=== PATIENT | male | born 1995 ===

== ENCOUNTER 2021-12-31 13:08 | Emergency (ER) | payer SELFPAY ==
[2021-12-31] MEDS ORDERED: KETOROLAC 30 MG/1 ML INJ IV ONE (13:45)
[2021-12-31] MEDS ORDERED: ONDANSETRON 4 MG/2 ML INJ IV ONE (13:45)
[2021-12-31] MEDS ORDERED: SODIUM CHLORIDE 0.9% 1000 ML 1,000 ML IV ONE (13:47)
--- NOTE | 2021-12-31 13:52 | Emergency Department Report ---
ED Abdominal Pain HPI - General Chief Complaint: Abdominal Pain Stated Complaint: SEVERE PAIN/KIDNEY STONES Time Seen by Provider: 12/31/21 13:19 Source: patient Mode of arrival: Ambulatory Limitations: No Limitations - History of Present Illness Initial Comments: 26-year-old male with a history of renal stone about 13 years ago who presents now with right flank pain that started this morning progressively getting worse. Pain is radiating to his right groin. Patient could not get comfortable and was pacing around in the room due to pain. He also mentioned that he wanted to pee but he was not able to. Patient denies any fever or chills. No trauma or fall reported. Patient also mention nausea without emesis. Last bowel movement was yesterday and was normal. No other modifying or associated factors reported. Severity scale (0 -10): 10 - Related Data Allergies Allergy/AdvReac Type Severity Reaction Status Date / Time No Known Allergies Allergy Unverified 12/31/21 13:12 ED Review of Systems ROS: Stated complaint: SEVERE PAIN/KIDNEY STONES Other details as noted in HPI Comment: All other systems reviewed and negative Gastrointestinal: abdominal pain, nausea. denies: vomiting Genitourinary: other (unable to urinate) Musculoskeletal: back pain, myalgia ED Past Medical Hx - Past Medical History Previous Medical History?: Yes Hx Kidney Stones: Yes - Surgical History Past Surgical History?: No ED Physical Exam - General Limitations: No Limitations General appearance: alert, in distress (Due to flank pain) - Head Head exam: Present: normal inspection - Eye Eye exam: Present: normal appearance - ENT ENT exam: Present: normal exam, normal orophraynx, mucous membranes moist - Neck Neck exam: Present: normal inspection, full ROM. Absent: tenderness - Respiratory Respiratory exam: Present: normal lung sounds bilaterally. Absent: respiratory distress, wheezes, accessory muscle use - Cardiovascular Cardiovascular Exam: Present: regular rate, normal rhythm, normal heart sounds - GI/Abdominal GI/Abdominal exam: Present: soft, tenderness (Right mid abdomen tenderness to palpation with no erythema or rash), normal bowel sounds - Back Exam Back exam: Present: normal inspection, CVA tenderness (R). Absent: vertebral tenderness - Neurological Exam Neurological exam: Present: alert, oriented X3 - Psychiatric Psychiatric exam: Present: normal affect, normal mood ED Course Vital Signs 04/12/22 04/12/22 13:13 13:28 Temperature 97.7 F Pulse Rate 88 Respiratory 22 20 Rate Blood Pressure 147/73 [Right] O2 Sat by Pulse 98 98 Oximetry - Reevaluation(s) Reevaluation #1: 12/31/21 13:51 Here with right flank pain radiating to the groin area--patient could not get comfortable this is likely/concerning for kidney stone--we will go ahead and order routine kidney stone work-up including CT scan of the abdomen/pelvic, CBC, CMP, urinalysis for any infectious process or electrolyte abnormality. In the meantime we will go ahead and give Toradol 30 mg IV to help with the pain, Zofran 4 mg IV for nausea also will give 1 mg Ativan for muscle relaxant and and 1 L IV fluids normal saline while waiting for labs and imaging. Reevaluation #2: 12/31/21 14:58 I rechecked this patient and he was sleeping after the pain medication and the ivf ns fluid treatment. Pt signed out to Dr Glaser while waiting for other workup labs and imaging at shift change 1500. ED Medical Decision Making - Lab Data Result diagrams: 12/31/21 14:11 12/31/21 14:11 Critical care attestation.: If time is entered above; I have spent that time in minutes in the direct care of this critically ill patient, excluding procedure time. ED Disposition Clinical Impression: Acute right flank pain Condition: Stable
[2021-12-31 14:30] LABS: Bilirubin,Urine NEG (Negative); Blood,Urine SM (Negative); Color,Urine Yellow (Yellow); Mucus,Urine FEW /HPF; Protein,Urine <15 mg/dL mg/dL (Negative); Urobilinogen,Urine < 2.0 mg/dL (<2.0)
[2021-12-31 14:31] LABS: Basophils % (Auto) 0.4 % (0.0-1.8); Eosinophils % (Auto) 0.1 % (0.0-4.3); Hemoglobin 14.6 gm/dl (11.8-15.2); Lymphocytes % (Auto) 12.2 % (13.4-35.0); Mean Corpuscular HGB Conc 34 % (32-34); Mean Corpuscular Volume 92 fl (84-94); Monocytes # (Auto) 0.3 K/mm3 (0.0-0.8); Monocytes % (Auto) 3.7 % (0.0-7.3); Platelet Count 223 K/mm3 (140-440); Red Blood Count 4.68 M/mm3 (3.65-5.03); Red Cell Distribution Width 12.9 % (13.2-15.2)
[2021-12-31 14:46] LABS: Alanine Aminotransferase 28 units/L (7-56); Albumin 4.3 g/dL (3.9-5); BUN/Creatinine Ratio 12; Blood Urea Nitrogen 16 mg/dL (9-20); Calcium 9.3 mg/dL (8.4-10.2); Hemolysis Index 45
--- NOTE | 2021-12-31 15:09 | Cat Scan Report ---
CT ABDOMEN AND PELVIS WITHOUT CONTRAST INDICATION / CLINICAL INFORMATION: R flank pain/ renal stone WELL TESTICULAR PAIN. TECHNIQUE: Axial CT images were obtained through the abdomen and pelvis without IV contrast. Sagittal and mike l reformatted images. All CT scans at this location are performed using CT dose reduction for ALARA b y means of automated exposure control. COMPARISON: None available. FINDINGS: LOWER CHEST: No significant abnormality. LIVER: No significant abnormality. GALLBLADDER: No significant abnormality. BILE DUCTS: No significant abnormality. PANCREAS: No significant abnormality. SPLEEN: No significant abnormality. ADRENALS: No significant abnormality. RIGHT KIDNEY and URETER: There is mild right perinephric and right periureteral stranding but no hydr onephrosis or obstructing lesion. The right kidney is unremarkable. LEFT KIDNEY and URETER: No significant abnormality. STOMACH and SMALL BOWEL: No significant abnormality. COLON: No significant abnormality. APPENDIX: Surgically removed. PERITONEUM: No free fluid. No free air. No fluid collection. LYMPH NODES: No significant adenopathy. AORTA and ARTERIES: No significant abnormality. IVC and VEINS: No significant abnormality. URINARY BLADDER: A 2 mm stone is identified in the bladder. No bladder wall abnormality. REPRODUCTIVE ORGANS: No significant abnormality. ADDITIONAL FINDINGS: None. SKELETAL SYSTEM: No significant abnormality. IMPRESSION: 2 mm stone in the bladder is identified. There is mild right perinephric and periureteral stranding c onsistent with a recently passed stone. No additional nephrolithiasis is identified. Signer Name: Juan J Clemente Jr, MD Signed: 12/31/2021 3:05 PM Workstation Name: [id number]
[2021-12-31 15:39] VITALS: BP 132/69
--- NOTE | 2021-12-31 17:20 | Event Note ---
Date: 12/31/21 Patient was signed out to me by Dr. Mccarthy patient CT scan shows a kidney stone in the bladder he is feeling better I will discharge patient with Toradol Flomax and follow-up with the urologist. Discussed plan with patient patient agrees with plan
== END 2021-12-31 17:30 | disposition home or self-care (01) ==
LOC: ED 13:08
DX: R10.31 Right lower quadrant pain (principal)
CPT/HCPCS: 36415; 74176; 80053; 81001; 83690; 85025; 96361; 96374; 96375; 99284; J1885; J2405; J7030; Q0162